=== PATIENT | male | born 1990 ===

== ENCOUNTER 2018-11-29 20:57 | Emergency (ER) | payer OTHER ==
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
== END 2018-11-29 21:30 | disposition home or self-care (01) ==
LOC: UCEAST 20:57
DX: S16.1XXA Strain of muscle, fascia and tendon at neck level, initial encounter (principal); S39.012A Strain of muscle, fascia and tendon of lower back, initial encounter; V43.53XA Car driver injured in collision with pick-up truck in traffic accident, initial encounter; Y92.410 Unspecified street and highway as the place of occurrence of the external cause; Z88.0 Allergy status to penicillin
CPT/HCPCS: 99201; G0463